=== PATIENT | male | born 1960 | race Caucasian/White ===

== ENCOUNTER 2020-11-30 08:21 | Emergency (ER) | payer OTHER, SELFPAY ==
[2020-11-30 08:30] VITALS: BP 149/79; PULSE 80; RESP 16; TEMP 36.1; O2SAT 97
--- NOTE | 2020-11-30 08:54 | ED.EYEPROB ---
HPI - Eye Problem General Chief complaint: Eye Problems Stated complaint: Left Eye Pain Time Seen by Provider: 11/30/20 08:55 Source: patient, RN notes reviewed and old records reviewed Mode of arrival: ambulatory Limitations: no limitations History of Present Illness HPI Narrative: 61 year old male who presents to [facility] care with complaints of left eye pain, redness, sensation like something is in his left eye since Tuesday night. Patient states no known injury to his left eye, has not been working with metal or wood or been around a lot of dust. Patient states that his left eye has been burning and itchy, his eye has been red with mild swelling to his upper left eyelid, rates his discomfort 4/10. Patient has noted redness to his sclera and conjunctiva is red, no noted lesions along eyelids or around eye. Patient denies any sharp sudden pain to his eye or any changes in his vision. MD chief complaint: eye pain, eye redness and other (sensation of foreign object) Onset (ago): day(s) (day 3) Onset description: gradual Duration: constant Location: left eye Eye Symptoms: burning, redness, pain, foreign body sensation and itching Mechanism: none Severity: moderate Severity scale (1-10): 4 If Pain, Quality: burning and aching Context: other (feels like something in eye) Associated symptoms: none Treatments Prior to Arrival: none Related Data Allergies Allergy/AdvReac Type Severity Reaction Status Date / Time No Known Allergies Allergy Verified 11/30/20 08:40 Review of Systems Review of Systems: Narrative: CONSTITUTIONAL: Denies fever, chills, or sweats. EYES: Denies visual changes,positive redness, irritation, feelings of something in left eye, burning ENT: Denies rhinorrhea, congestion, sore throat, or otalgia. CARDIOVASCULAR: Denies chest pain, palpitations, or edema. RESPIRATORY: Denies cough or dyspnea. GASTROINTESTINAL: Denies abdominal pain, nausea, vomiting, or diarrhea. GENITOURINARY: Denies dysuria or hematuria. SKIN: Denies rash or itching. MUSCULOSKELETAL: Denies any acute back pain, joint pain, or myalgia. NEUROLOGIC: Denies headache, numbness, or weakness. PSYCHIATRIC: Denies anxiety or depression. All systems reviewed & are unremarkable except as noted in HPI and below PMFSH Past Medical History Medical History (Updated 11/30/20 @ 09:23 by Ruth Ann Durham NP) Back injury Surgical History Surgical History (Updated 11/30/20 @ 09:31 by Ruth Ann Durham NP) H/O hand surgery 5th finger surgial repair from injury Family History Family History (Updated 11/30/20 @ 09:32 by Ruth Ann Durham NP) Mother Heart disease Diabetes mellitus Grandparent Heart disease Social History Social History (Updated 11/30/20 @ 09:33 by Ruth Ann Durham NP) Smoking packs per day: 0.5 Smoking cigarettes per day: 10.0 Years smoked: 30 Smoking pack-years: 15.00 Smoking status: Current every day smoker Tobacco type: cigarettes Alcohol intake: former Alcohol use details: none for 27 years Substance use: never Living arrangements: with family Gender identity (if verbalized by the patient): Male Comments At time of signature, agree with nursing past medical, surgical, social and family history. There is no relevant family history pertinent to the presenting complaint Exam Narrative: Exam Narrative: GENERAL: Well-appearing, well-nourished, and in no acute distress. HEAD: Normocephalic, atraumatic. EYES: PERRLA and EOMI.conjunctiva and sclera red of left eye. feelings of foreign body in left eye with irritation and burning sensation. mild swelling noted to left upper eyelid with no drainage noted from eye, patient reports that left eye was matted shut this morning. Visual acuity bilateral without corrective lenses 20/50. Left eye localized with tetracaine 0.5% 2 drops, stained with fluorescein dye and examined using gardner light, small black particle removed from surface of cornea, not imbedded wi
== END 2020-11-30 09:17 | disposition home or self-care (01) ==
PROVIDERS: Emergency Provider Registered Nurse
DX: T15.02XA Foreign body in cornea, left eye, initial encounter (principal); X58.XXXA Exposure to other specified factors, initial encounter; F17.210 Nicotine dependence, cigarettes, uncomplicated
CPT/HCPCS: 65220; 99213; A9270; G0463

== ENCOUNTER 2021-03-15 09:10 | Emergency (ER) | payer OTHER, SELFPAY ==
[2021-03-15 09:17] VITALS: BP 150/89; PULSE 96; RESP 16; TEMP 36.9; O2SAT 98
--- NOTE | 2021-03-15 09:23 | ED.DENTAL ---
HPI - Dental/Oral General Chief complaint: Dental/Oral Stated complaint: tooth pain Time Seen by Provider: 03/15/21 09:22 Source: patient and RN notes reviewed Mode of arrival: ambulatory Limitations: no limitations History of Present Illness HPI Narrative: 61-year-old male presents with concern for right lower tooth pain, gum redness and swelling, swelling of the right lower lip. Reports symptoms started last night, worsened this morning. Reports he has bad teeth . He denies any trouble swallowing, body aches, fever. Reports he is going to try and get a dentist appointment. MD Complaint: tooth pain Related Data Allergies Allergy/AdvReac Type Severity Reaction Status Date / Time No Known Allergies Allergy Verified 03/15/21 09:29 Review of Systems Review of Systems: CONSTITUTIONAL: Denies malaise, chills, sweats, or fever. ENT: Denies rhinorrhea, congestion, sinus pain, otalgia or sore throat. Reports right lower dental pain CARDIOVASCULAR: Denies chest pain, palpitations, or edema. RESPIRATORY: Denies cough or dyspnea. SKIN: Reports right lower facial/lip swelling MUSCULOSKELETAL: Denies myalgia. NEUROLOGIC: Denies headache. All systems reviewed & are unremarkable except as noted in HPI and below PMFSH Past Medical History Medical History (Updated 03/15/21 @ 09:31 by Karen Graves NP) Back injury Surgical History Surgical History (Updated 11/30/20 @ 09:31 by Ruth Ann Durham NP) H/O hand surgery 5th finger surgial repair from injury Family History Family History (Updated 11/30/20 @ 09:32 by Ruth Ann Durham NP) Mother Heart disease Diabetes mellitus Grandparent Heart disease Social History Social History (Updated 11/30/20 @ 09:33 by Ruth Ann Durham NP) Smoking packs per day: 0.5 Smoking cigarettes per day: 10.0 Years smoked: 30 Smoking pack-years: 15.00 Smoking status: Current every day smoker Tobacco type: cigarettes Alcohol intake: former Alcohol use details: none for 27 years Substance use: never Gender identity (if verbalized by the patient): Male Comments At time of signature, agree with nursing past medical, surgical, social and family history. There is no relevant family history pertinent to the presenting complaint Exam Narrative: GENERAL: Well-appearing, well-nourished, and in no acute distress. HEAD: Normocephalic, atraumatic. EYES: PERRLA, sclera clear, and EOMI. ENT: Nares clear. Mucous membranes moist. Oropharynx without edema, erythema or lesions. Multiple missing teeth, broken teeth, carious. Right lower gingival erythema and edema without periapical abscess noted NECK: Supple. CHEST: No respiratory distress. Speaks in full sentences. HEART: Regular rate and rhythm. SKIN: Warm, dry, no visible rash. NEURO: Alert and oriented x3. PSYCH: Normal mood and affect Course Course Emergency Course: Patient is aware of diagnosis, understands and agrees to treatment plan. Anticipatory guidance given. Patient agrees to follow-up as directed and is aware of reasons to seek care at the emergency department. Portions of this record may have been created with voice recognition software Vital Signs Vital signs: Vital Signs Temperature 98.5 F 03/15/21 09:17 Pulse Rate 96 03/15/21 09:17 Respiratory Rate 16 03/15/21 09:17 Blood Pressure 150/89 H 03/15/21 09:17 Pulse Oximetry 98 03/15/21 09:17 Temperature 98.5 F 03/15/21 09:17 Pulse Rate 96 03/15/21 09:17 Respiratory Rate 16 03/15/21 09:17 Blood Pressure 150/89 H 03/15/21 09:17 Pulse Oximetry 98 03/15/21 09:17 Reviewed. MDM - Dental/Oral MDM Narrative Medical decision making narrative: Patients pain and complaint coupled with physical findings are consistant with dentalgia. There are no focal signs of space occupying lesions that are compromising to the airway; no dysphagia, odynophagia, dysphonia, or dyspnea. No uvular deviation or soft palate edema. Patient i
== END 2021-03-15 09:38 | disposition home or self-care (01) ==
PROVIDERS: Emergency Provider Nurse Practitioner
DX: K08.89 Other specified disorders of teeth and supporting structures (principal); F17.210 Nicotine dependence, cigarettes, uncomplicated
CPT/HCPCS: 99213; G0463

== ENCOUNTER 2022-01-02 16:04 | Emergency (ER) | payer OTHER, SELFPAY ==
--- NOTE | ~2022-01-02 | CT_ITS ---
EXAMINATION: CT brain wo con DATE: 01/02/2022 16:53 INDICATION: head injury . TECHNIQUE: Computed tomography (CT) of the head was performed without intravenous contrast. The mA wa s adjusted according to patient size. Iterative reconstruction technique was employed. The dose-lengt h product was 473.22 mGy-cm. COMPARISON: None FINDINGS: Exam limited by motion artifact requiring repeat imaging, and extended [id number] collection which limits resolution. No acute intracranial hemorrhage or extra-axial fluid collection. No hydrocephalus, mass, or herniation. No acute ischemic infarct. Unremarkable dural venous sinus attenuation. Possible right zygomatic arch fracture, which is incompletely visualized at the inferior margin of th e scan. Left orbital floor fracture, with herniation of intraorbital fat. Otherwise no acute osseous abnormality. Extensive anterior and bilateral scalp lacerations with areas of suspected avulsion and degloving. Considerable subcutaneous debris is present. Left maxillary sinus hemorrhage, otherwise the aerated spaces are clear. IMPRESSION: Limited examination as described above. No acute intracranial process. Left orbital floor fracture with herniation of orbital fat, no definite extra ocular muscle entrapmen t. Possible right zygomatic arch fracture. Extensive anterior and bilateral scalp lacerations, with areas of suspected avulsion, degloving, and considerable subcutaneous debris. Reviewed, dictated and finalized at location K. IMPRESSION: Limited examination as described above. No acute intracranial process. Left orbital floor fracture with herniation of orbital fat, no definite extra o cular muscle entrapment. Possible right zygomatic arch fracture. Extensive anterior and bilateral scalp lacerations, with areas of suspected avu lsion, degloving, and considerable subcutaneous debris.
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
--- NOTE | 2022-01-02 16:15 | PC.NURSE ---
PT declines to wear C collar. PT states he has major anxiety and will not wear collar.
--- NOTE | 2022-01-02 16:25 | PC.NURSE ---
Air EVAC declined - unabailable Arch accepted eta 14min
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
[2022-01-02] MEDS: LORazepam INJ (*CRX) 2 MG/ML VIAL (16:28)
[2022-01-02] MEDS: ceFAZolin 2 GM/D5W 50 ML 2 GM/50 ML BAG IVPB (16:28)
[2022-01-02 16:29] VITALS: PULSE 95; RESP 29; O2SAT 92
[2022-01-02] MEDS: SODIUM CHLORIDE 0.9% IV 1,000 ML 999 ML IV CONT (16:29)
[2022-01-02] MEDS: TETANUS,DIPHTHERIA,AC PERTUSSIS ADULT (0.5 ML) BOOSTRIX IM (16:29)
[2022-01-02 16:30] VITALS: BP 152/92; PULSE 95; RESP 25; O2SAT 90
[2022-01-02 16:31] VITALS: PULSE 95; RESP 29; O2SAT 95
[2022-01-02] MEDS: fentaNYL CITRATE INJ (*CRX) 100 MCG/2 ML VIAL 50 MCG IV PUSH (16:31)
--- NOTE | 2022-01-02 16:37 | PC.NURSE ---
PT too ct scan.
[2022-01-02 16:50] LABS: Basophils Absolute Auto 0.2 K/mm3 (0.0-0.1); Basophils Percent Auto 1.1 % (0.2-1.2); Eosinophils Absolute Auto 0.4 K/mm3 (0-0.3); Eosinophils Percent Auto 2.8 % (0-4.4); Hematocrit 47.7 % (42.0-52.0); Hemoglobin 15.6 g/dL (14.0-18.0); Immature Granulocyte Absolute 0.15 K/mm3 (0.00-0.031); Lymphocytes Absolute Auto 5.23 K/mm3 (0.9-3.2); Lymphocytes Percent Auto 34.5 % (18.3-44.2); Mean Corpuscular HGB Conc 32.7 g/dl (32-36); Mean Corpuscular Hemoglobin 28.4 pg (26-34); Mean Corpuscular Volume 86.7 fl (80-100); Mean Platelet Volume 10.4 fl (7.4-10.4); Monocytes Absolute Auto 1.2 K/mm3 (0.1-0.6); Monocytes Percent Auto 8.2 % (2.6-8.5); Neutrophils Absolute Auto 7.9 K/mm3 (1.3-6.7); Neutrophils Percent Auto 52.4 % (45.5-73.1); Platelet Count Result 201 k/mm3 (150-375); Red Cell Distribution Width 13.6 % (11.5-14.5); White Blood Count 15.1 K/mm3 (4.5-10.0)
--- NOTE | 2022-01-02 16:55 | PC.NURSE ---
PT attempted to climb off table during CT scan.
[2022-01-02 17:06] LABS: Alanine Aminotransferase 30 U/L (6-50); Albumin Level 4.2 g/dL (3.5-5.1); Alkaline Phosphatase 102 U/L (38-126); Anion Gap 11 mmol/L (8-16); Aspartate Amino Transferase 41 U/L (17-59); Bilirubin,Total 0.8 mg/dL (0.2-1.3); Blood Urea Nitrogen 19 mg/dL (9-20); Calcium 8.7 mg/dL (8.4-10.2); Carbon Dioxide 20 mmol/L (22-30); Chloride 107 mmol/L (98-107); Estimated Glomerular Filt Rate 56; Glucose 159 mg/dL (65-110); Potassium 3.9 mmol/L (3.4-5.0); Sodium 138 mmol/L (137-145)
== END 2022-01-02 17:00 | disposition short-term general hospital (02) ==
PROVIDERS: Emergency Provider Preventive Medicine Aerospace Medicine
DX: S01.01XA Laceration without foreign body of scalp, initial encounter (principal); Z23 Encounter for immunization; F17.210 Nicotine dependence, cigarettes, uncomplicated; W20.8XXA Other cause of strike by thrown, projected or falling object, initial encounter
CPT/HCPCS: 36415; 70450; 71045; 72170; 80053; 85025; 86850; 86900; 86901; 90471; 90715; 96365; 96375; 99285; J0690; J2060; J3010; J7030

== ENCOUNTER 2022-05-30 22:51 | Emergency (ER) | payer OTHER, SELFPAY ==
[2022-05-30 23:06] VITALS: BP 155/90; PULSE 99; RESP 16; TEMP 36.6; O2SAT 97
--- NOTE | 2022-05-30 23:15 | ED.EYEPROB ---
HPI - Eye Problem General Chief complaint: Eye Problems <Hilary Lechuga PA-C - Last Filed: 05/31/22 18:46> Stated complaint: right eye foreign body, no vision changes <Hilary Lechuga PA-C - Last Filed: 05/31/22 18:46> Time Seen by Provider: 05/30/22 23:01 <Hilary Lechuga PA-C - Last Filed: 05/31/22 18:46> History of Present Illness HPI Narrative: Patient is a 62-year-old male here for evaluation of a foreign body to his right eye. Patient is unsure when this occurred or what the object is but he is he has felt irritated for the past day and he has noticed a spot on his iris. He does not wear contact lenses or corrective lenses. He denies any blurry vision. No pain with extraocular movements. <Hilary Lechuga PA-C - Last Filed: 05/31/22 18:46> Related Data Allergies/adverse reactions: Allergies Allergy/AdvReac Type Severity Reaction Status Date / Time No Known Allergies Allergy Verified 05/30/22 22:52 <Hilary Lechuga PA-C - Last Filed: 05/31/22 18:46> Review of Systems Review of Systems: Gen.: Denies fevers or chills Eyes: Reports right eye irritation. ENT: Denies congestion Respiratory: Denies shortness of breath or cough CV: Denies chest pain or palpitations GI: Denies abdominal pain nausea, emesis or diarrhea denies burning, urgency, frequency or hematuria Musculoskeletal: Denies back pain or muscle pain Neuro: Denies numbness, tingling, weakness or focal weakness Skin: Denies rash Except as documented, all other systems reviewed and negative <Hilary Lechuga PA-C - Last Filed: 05/31/22 18:46> [facility] Past Medical History Medical History: Medical History Back injury <Hilary Lechuga PA-C - Last Filed: 05/31/22 18:46> Surgical History Surgical History: Surgical History H/O hand surgery 5th finger surgial repair from injury <Hilary Lechuga PA-C - Last Filed: 05/31/22 18:46> Family History Family History: Family History Mother Heart disease Diabetes mellitus Grandparent Heart disease <Hilary Lechuga PA-C - Last Filed: 05/31/22 18:46> Social History Social History: Social History Smoking packs per day: 0.5 Smoking cigarettes per day: 10.0 Years smoked: 30 Smoking pack-years: 15.00 Smoking status: Current every day smoker Tobacco type: cigarettes Alcohol intake: former Alcohol use details: none for 27 years Substance use: never Gender identity (if verbalized by the patient): Male <Hilary Lechuga PA-C - Last Filed: 05/31/22 18:46> Exam Narrative: Gen: Alert, oriented, no acute distress Eyes: Patient has a pinpoint foreign body overlying the right pupil. Fluorescein exam reveals negative Siedel's sign and a small area of uptake inferior to the pupil. Pupils are equal round and reactive to light. Extraocular movements intact. Pulm: Respirations even and unlabored, symmetric thorax expansion, no audible stridor or visible cyanosis CV: Regular rate per telemetry GI: No distension, no voluntary/involuntary guarding Neuro: AOx4, moves all extremities without apparent difficulty or weakness, follows commands Skin: No jaundice, no visible bruising, rashes, lesions or wounds on exposed skin Psych: Normal mood/affect, insight/judgement good, adequate fund of knowledge, recent/remote memory intact <Hilary Lechuga PA-C - Last Filed: 05/31/22 18:46> Course QUALIFICATION ENGINEER/PA Physician Supervision For this encounter, I have reviewed the PA documentation, treatment plan and medical decision making: And I have had [id number] time with the patient. On my exam the right I does have a small abrasion directly over the pupil there does
[2022-05-30] MEDS: TETRACAINE HCL 0.5% OPHTH SOLN 4 ML BTL 1 DROP EACH EYE (23:35)
[2022-05-30] MEDS: FLUORESCEIN SOD 1 MG/STRIP RIGHT EYE (23:35)
[2022-05-30] MEDS: ERYTHROMYCIN OPHTH OINTMENT 1 GM TUBE 1 APPLIC EACH EYE (23:51)
== END 2022-05-30 23:58 | disposition home or self-care (01) ==
PROVIDERS: Emergency Provider Emergency Medicine
DX: T15.01XA Foreign body in cornea, right eye, initial encounter (principal); F17.210 Nicotine dependence, cigarettes, uncomplicated; W45.8XXA Other foreign body or object entering through skin, initial encounter
CPT/HCPCS: 99283; A9270